=== PATIENT | female | born 1995 | race Caucasian/White ===

== ENCOUNTER 2021-08-03 15:12 | Outpatient (CLI) | payer OTHER ==
[~2021-08-03] VITALS: Ht 162.6 cm; Wt 138.3 kg
== END 2021-08-03 22:15 | disposition home or self-care (01) ==
LOC: GENOP 15:12
DX: O21.2 Late vomiting of pregnancy (principal); O99.891 Other specified diseases and conditions complicating pregnancy; R10.9 Unspecified abdominal pain; Z88.5 Allergy status to narcotic agent; Z3A.37 37 weeks gestation of pregnancy
CPT/HCPCS: 81001; 82962; 87086; 96360; 96361; 96365; 96375; J2405

== ENCOUNTER 2021-08-04 16:31 | Inpatient (IN) | payer OTHER ==
[~2021-08-04] VITALS: Ht 162.6 cm; Wt 138.3 kg
[2021-08-04 17:04] LABS: HEMOGLOBIN 9.7 gm/dl (12.3-15.3); RED BLOOD COUNT 4.39 M/UL (4.00-5.10); WHITE BLOOD COUNT 6.7 K/UL (4.5-11.0)
[2021-08-05] MEDS ORDERED: DOCUSATE SODIU100 MG PO (11:54)
[2021-08-05] MEDS ORDERED: IBUPROFEN600 MG PO (11:54)
[2021-08-06 06:28] LABS: HEMOGLOBIN 8.5 gm/dl (12.3-15.3)
[2021-08-06] MEDS ORDERED: HYDROCODON-ACE1 EAC4 PO (11:07)
[2021-08-06] MEDS ORDERED: FERROCITE324 MG PO (11:17)
== END 2021-08-06 16:24 | disposition home or self-care (01) | DRG 807 ==
LOC: GENOP 16:31 → OB 16:55
PROVIDERS: Obstetrics & Gynecology; ADMIT Obstetrics & Gynecology
PROC: 4A1HXCZ Monitoring of Products of Conception, Cardiac Rate, External Approach (ICD-10-PCS; 2021-08-04)
PROC: 3E0234Z Introduction of Serum, Toxoid and Vaccine into Muscle, Percutaneous Approach (ICD-10-PCS; 2021-08-04)
PROC: 10E0XZZ Delivery of Products of Conception, External Approach (ICD-10-PCS; principal; 2021-08-06)
PROC: 10907ZC Drainage of Amniotic Fluid, Therapeutic from Products of Conception, Via Natural or Artificial Opening (ICD-10-PCS; 2021-08-06)
PROC: 3E033VJ Introduction of Other Hormone into Peripheral Vein, Percutaneous Approach (ICD-10-PCS; 2021-08-06)
DX: O24.420 Gestational diabetes mellitus in childbirth, diet controlled (principal); Z37.0 Single live birth; O99.214 Obesity complicating childbirth; E66.9 Obesity, unspecified; Z20.822 Contact with and (suspected) exposure to COVID-19; Z3A.36 36 weeks gestation of pregnancy; O99.02 Anemia complicating childbirth; D64.9 Anemia, unspecified; Z90.49 Acquired absence of other specified parts of digestive tract; Z86.73 Personal history of transient ischemic attack (TIA), and cerebral infarction without residual deficits; Z81.8 Family history of other mental and behavioral disorders; Z83.3 Family history of diabetes mellitus; Z80.9 Family history of malignant neoplasm, unspecified; Z82.49 Family history of ischemic heart disease and other diseases of the circulatory system; Z98.890 Other specified postprocedural states; Z23 Encounter for immunization
CPT/HCPCS: 36415; 81001; 82800; 82962; 85014; 85018; 85025; 90471; 90715; J1650; J2590; J7030; U0002